=== PATIENT | female | born 1995 | race Caucasian/White ===

== ENCOUNTER 2025-06-02 01:50 | Emergency (ER) | payer MEDICAID ==
[~2025-06-02] VITALS: Ht 170.2 cm; Wt 65.8 kg
[2025-06-02] MEDS ORDERED: Ketorolac Tromethamine 30mg Vial IV ONE (02:35)
[2025-06-02] MEDS ORDERED: Prochlorperazine Edisylate 10 mg Vial IV ONE (02:35)
[2025-06-02] MEDS ORDERED: NS 1,000 ML IV SCH (02:35)
[2025-06-02] MEDS ORDERED: IBU600 MG PO (04:08)
[2025-06-02] MEDS ORDERED: COMPAZINE10 MG PO (04:08)
== END 2025-06-02 04:29 | disposition home or self-care (01) ==
LOC: ER 01:50
DX: R51.9 Headache, unspecified (principal)
CPT/HCPCS: 70450; 96374; 96375; 99284-25; J0780; J1885; J7030